=== PATIENT | female | born 1940 | race Caucasian/White ===

== ENCOUNTER 2018-03-02 15:58 | Inpatient (IN) | payer OTHER ==
[~2018-03-02] VITALS: Ht 167.6 cm; Wt 77.1 kg
[2018-03-02 17:05] VITALS: BP 144/85
[2018-03-02 17:38] LABS: HEMATOCRIT 44.2 % (36-48); MEAN CORPUSCULAR HEMOGLOBIN 30.5 pg (27.0-33.0); MEAN CORPUSCULAR HGB CONC 34.2 g/dL (32.0-36.0); MEAN CORPUSCULAR VOLUME 89.2 fL (79-99); PLATELET COUNT (AUTO) 327 K/uL (130-400); RED BLOOD CELL COUNT(AUTO) 4.95 MIL/uL (4.00-5.50); RED CELL DISTRIBUTION WIDTH 13.5 % (11.0-15.5); WHITE BLOOD COUNT (AUTO) 11.1 K/uL (4.8-10.8)
[2018-03-02 17:55] LABS: ALBUMIN 4.3 g/dL (3.5-5.0); BILIRUBIN,TOTAL 0.4 mg/dL (0.2-1.0); CREATININE 0.9 mg/dL (0.5-1.5); POTASSIUM 3.7 mmol/L (3.5-5.1); TOTAL PROTEIN, SERUM 8.5 g/dL (6.0-8.3)
[2018-03-02] MEDS: SODIUM CHLORIDE 0.9% 1000ML 1,000 ML IV SCH (18:28)
[2018-03-02] MEDS ORDERED: LACTULOSE 20 GM/30 ML UDCUP PO PRN (18:30)
[2018-03-02] MEDS ORDERED: NITROGLYCERIN 0.4 MG SL TAB SL PRN (18:30)
[2018-03-02] MEDS ORDERED: LIDOCAINE HCL-MPF 1% 2ML VIAL IJ PRN (18:30)
[2018-03-02] MEDS ORDERED: DIPHENHYDRAMINE HCL 25 MG CAPSULE PO PRN (18:30)
[2018-03-02] MEDS ORDERED: ACETAMINOPHEN 325 MG TAB PO PRN ×2 (18:30)
[2018-03-02] MEDS ORDERED: POTASSIUM CHLORIDE 10% ELIXIR 20 MEQ/15 ML UDCUP PO PRN (18:30)
[2018-03-02] MEDS ORDERED: POTASSIUM CHLORIDE 20MEQ/100ML 100 ML IV PRN (18:30)
[2018-03-02] MEDS ORDERED: DiphenhydrAMINE HCL 50 MG/ML VIAL IVP PRN (18:30)
[2018-03-02] MEDS ORDERED: ZOLPIDEM TARTRATE 5 MG TAB PO PRN (18:30)
[2018-03-02] MEDS ORDERED: POTASSIUM CHLORIDE 20 MEQ ERTAB PO PRN (18:30)
[2018-03-02] MEDS ORDERED: MAG HYDROX/AL HYDROX/SIMETH ES 30 ML SUSP UDCUP PO PRN (18:30)
[2018-03-02] MEDS ORDERED: ONDANSETRON HCL 4 MG/2 ML VIAL IVP PRN (18:30)
[2018-03-02] MEDS ORDERED: ZOLP10TA6 PO (18:59)
[2018-03-02 19:00] VITALS: BP 159/80
[2018-03-02] MEDS: ZOLPIDEM TARTRATE 5 MG TAB PO SCH (20:37)
[2018-03-02] MEDS: ZOSYN 3.375GM+NS 50ML 50 ML IV SCH (20:37)
[2018-03-02] MEDS: FAMOTIDINE 20MG TAB 20 MG TAB PO SCH (20:37)
[2018-03-02] MEDS: GUAIFENESIN-DM 200/20 MG 10 ML PO PRN (21:38)
[2018-03-03] VITALS (7 sets, daily range): BP systolic 139–170; BP diastolic 61–87
[2018-03-03] MEDS: CLONIDINE HCL 0.1 MG TABLET PO PRN ×2 (00:55→23:36)
[2018-03-03] MEDS: ZOSYN 3.375GM+NS 50ML 50 ML IV SCH ×3 (04:37→19:31)
[2018-03-03] MEDS: SODIUM CHLORIDE 0.9% 1000ML 1,000 ML IV SCH ×3 (04:41→18:30)
[2018-03-03] MEDS: GUAIFENESIN-DM 200/20 MG 10 ML PO PRN (06:02)
[2018-03-03] MEDS ORDERED: SODIUM CHLORIDE 3% FOR INHALATION 4 ML/AMP VIAL.NEB IH ONE ×3 (06:54→13:55)
[2018-03-03] MEDS: IPRATROPIUM/ALBUTEROL SULFATE 3 ML SOLUTION IH PRN ×3 (07:09→18:22)
[2018-03-03] MEDS ORDERED: DOCUSATE SODIUM 100 MG CAP PO PRN (08:15)
[2018-03-03] MEDS: FAMOTIDINE 20MG TAB 20 MG TAB PO SCH ×2 (09:42→20:31)
[2018-03-03] MEDS: ZOLPIDEM TARTRATE 5 MG TAB PO SCH (20:32)
[2018-03-04] MEDS: SODIUM CHLORIDE 0.9% 1000ML 1,000 ML IV SCH (02:30)
[2018-03-04 03:00] VITALS: BP 163/85
== END 2018-03-04 04:20 | disposition left against medical advice (07) | DRG 872 ==
LOC: EDH 15:58 → EDHIP 15:59 → 3CH 16:53
PROVIDERS: ADMIT Family Medicine; ATTEND Family Medicine
DX: A41.9 Sepsis, unspecified organism (principal); J20.9 Acute bronchitis, unspecified; E86.0 Dehydration; Z86.73 Personal history of transient ischemic attack (TIA), and cerebral infarction without residual deficits; Z53.21 Procedure and treatment not carried out due to patient leaving prior to being seen by health care provider
CPT/HCPCS: 36415; 71046; 80053; 85027; 87040; 94640; 94664; 94667; 94668; J2543; J7030; Q0163